=== PATIENT | female | born 1995 | race Two or more races ===

== ENCOUNTER 2021-07-19 00:58 | Emergency (ER) | payer OTHER ==
[~2021-07-19] VITALS: Ht 152.4 cm; Wt 104.3 kg
[2021-07-19] MEDS ORDERED: PHENAGIL TABLE1 EACH PO (04:57)
[2021-07-19] MEDS ORDERED: FLONASE ALLERG9.9 ML NASAL (04:57)
== END 2021-07-19 05:02 ==
LOC: ER 00:58
DX: J32.9 Chronic sinusitis, unspecified (principal)